=== PATIENT | male | born 1990 | race Caucasian/White ===

== ENCOUNTER 2021-01-19 07:36 | Outpatient (CLI) | payer BC, MEDICARE | END 2021-01-19 07:37 | disposition home or self-care (01) | LOC: BICULT 07:36 | PROVIDERS: ATTEND Internal Medicine Gastroenterology | DX: K50.90 Crohn's disease, unspecified, without complications (principal); R10.13 Epigastric pain; K82.8 Other specified diseases of gallbladder | CPT/HCPCS: 76705 ==

== ENCOUNTER 2021-05-09 08:13 | Outpatient (CLI) | payer BC, MEDICARE ==
[2021-05-09] MEDS ORDERED: Iopamidol 370 76% 100 ML VIAL ONE (09:33)
== END 2021-05-09 08:14 | disposition home or self-care (01) ==
LOC: CT 08:13
PROVIDERS: ATTEND Internal Medicine Gastroenterology
DX: K50.90 Crohn's disease, unspecified, without complications (principal); R10.13 Epigastric pain; M46.1 Sacroiliitis, not elsewhere classified; M43.28 Fusion of spine, sacral and sacrococcygeal region
CPT/HCPCS: 74178; Q9967

== ENCOUNTER 2022-07-10 12:27 | Outpatient (CLI) | payer BC, MEDICARE ==
[2022-07-10 13:25] LABS: #Basophils 0.1 10x3/uL (0.0-0.2); #Eosinphils 0.1 10x3/uL (0.0-0.5); #Monocytes 0.5 10x3/uL (0.0-1.1); #Neutrophils 3.5 10x3/uL (1.5-8.4); %Basophils 0.9 % (0.0-2.0); %Lymphocytes 35.8 % (18.0-47.0); %Monocytes 7.6 % (0.0-10.0); %Neutrophils 53.4 % (40.0-75.0); Hemoglobin 16.8 g/dL (13.5-17.5); Mean Corpuscular HGB CONC 34.2 g/dL (32.0-36.0); Mean Corpuscular Hemoglobin 30.4 pg (27.0-33.0); Mean Corpuscular Volume 88.9 fl (81.2-95.1); Mean Platelet Volume 9.3 fl (7.4-10.4); Platelet Count 305 10x3/uL (150-450); RBC Distribution Width 11.5 % (11.5-14.5); Red Blood Cell (RBC) Count 5.52 10x6/uL (4.32-5.72); White Blood Cell (WBC) Count 6.6 10x3/uL (3.5-10.5)
[2022-07-10 13:59] LABS: ALT (SGPT) 44 U/L (8-55); AST (SGOT) 43 U/L (5-34); Albumin 4.6 g/dL (3.5-5.0); Alkaline Phosphatase 83 U/L (40-110); Anion Gap 15 mmol/L (10-20); BUN (Urea Nitrogen) 15 mg/dL (8.9-20.6); Bilirubin, Total 0.4 mg/dL (0.2-1.2); Calc. Creatinine Clearance 0 mL/min (70-130); Calcium 9.8 mg/dL (7.8-10.44); Carbon Dioxide 26 mmol/L (22-29); Chloride 102 mmol/L (98-107); Estimated GFR 118; Globulin 2.9 g/dL (2.4-3.5); Glucose 88 mg/dL (70-105); Potassium 4.3 mmol/L (3.5-5.1); Protein, Total 7.5 g/dL (6.0-8.3); Sodium 139 mmol/L (136-145)
== END 2022-07-10 12:28 | disposition home or self-care (01) ==
LOC: LABBT 12:27
PROVIDERS: ATTEND Specialist
DX: Z01.812 Encounter for preprocedural laboratory examination (principal); K50.90 Crohn's disease, unspecified, without complications; R10.13 Epigastric pain
CPT/HCPCS: 80053; 85025

== ENCOUNTER 2022-07-13 06:07 | Day surgery (SDC) | payer BC, MEDICARE ==
[2022-07-12 11:06] VITALS: BMI 29.6
[2022-07-13] MEDS ORDERED: Bupivacaine/Epinephrine 0.25% 30 ML VIAL ONE (06:43)
[2022-07-13] MEDS ORDERED: CEFAZOLIN 2 GM VIAL ONE (06:51)
[2022-07-13] MEDS ORDERED: Ketorolac Tromethamine 30 MG/ML VIAL ONE (06:51)
[2022-07-13] MEDS ORDERED: Acetaminophen 500 MG TAB ONE (06:51)
[2022-07-13] MEDS ORDERED: Sodium Chloride 0.9% 100 ML ONE (06:51)
[2022-07-13] MEDS ORDERED: Midazolam HCl 2 mg/2 ml Vial ONE (07:27)
[2022-07-13] MEDS ORDERED: Fentanyl 250 MCG/5 ML VIAL ONE (07:40)
[2022-07-13] MEDS ORDERED: Glycopyrrolate 0.2 MG/ML 5 ML SYRINGE ONE (07:45)
[2022-07-13] MEDS ORDERED: Ondansetron PF 4 MG/2 ML Vial ONE ×2 (07:45→09:12)
[2022-07-13] MEDS ORDERED: PHENYLEPHRINE-NS 100 MCG/ML 10 ML SYRINGE ONE (07:45)
[2022-07-13] MEDS ORDERED: Lidocaine 1% PF 5 ML VIAL ONE (07:45)
[2022-07-13] MEDS ORDERED: NEOSTIGMINE 3 MG/3 ML SYR 3 MG/3 ML SYRINGE ONE (07:45)
[2022-07-13] MEDS ORDERED: Dexamethasone 20 MG/5 ML VIAL ONE (07:45)
[2022-07-13] MEDS ORDERED: Rocuronium Bromide 10 MG/ML (10ML VIAL) ONE (07:45)
[2022-07-13] MEDS ORDERED: PROPOFOL 200 MG/20 ML VIAL ONE (07:45)
[2022-07-13] MEDS ORDERED: Fentanyl 100 MCG/2 ML VIAL ONE ×2 (08:46→09:05)
[2022-07-13] MEDS ORDERED: Promethazine HCl 25 MG/ML VIAL ONE (10:03)
[2022-07-13] MEDS ORDERED: HYDROcodone/Acetaminophen 5/325 mg Tablet ONE (10:03)
== END 2022-07-13 11:00 | disposition home or self-care (01) ==
LOC: SDC 06:07
PROVIDERS: ATTEND Specialist
PROC: 0FT44ZZ Resection of Gallbladder, Percutaneous Endoscopic Approach (ICD-10-PCS; principal; 2022-07-13)
DX: K81.1 Chronic cholecystitis (principal); K50.90 Crohn's disease, unspecified, without complications; G47.00 Insomnia, unspecified; Z79.620 Long term (current) use of immunosuppressive biologic; Z79.899 Other long term (current) drug therapy; Z88.5 Allergy status to narcotic agent; Z88.8 Allergy status to other drugs, medicaments and biological substances; Z90.49 Acquired absence of other specified parts of digestive tract
CPT/HCPCS: 88304; C1889; J1885; J2250; J2405; J2550; J3010; J3490

== ENCOUNTER 2023-05-15 15:21 | Outpatient (CLI) | payer BC, MEDICARE | END 2023-05-15 15:22 | disposition home or self-care (01) | LOC: BICRAD 15:21 | PROVIDERS: ATTEND Student in an Organized Health Care Education/Training Program | DX: M25.531 Pain in right wrist (principal) ==

== ENCOUNTER 2023-09-08 16:51 | Emergency (ER) | payer BC, MEDICARE ==
[~2023-09-08 16:51] MED LIST: Iopamidol-370 76% 500 ML MDV (1 ML CHARGE) ONE
[2023-09-08 17:26] LABS: #Eosinphils 0.1 thou/uL (0.0-0.7); #Monocytes 1.3 thou/uL (0.11-0.59); #Neutrophils 3.6 thou/uL (1.40-6.50); %Basophils 0.5 % (0.0-1.0); %Eosinophils 1.5 % (0.0-10.0); %Lymphocytes 36.7 % (21.0-51.0); %Monocytes 16.5 % (0.0-10.0); %Neutrophils 44.6 % (42.0-75.0); Hematocrit 51.3 % (42.0-52.0); Hemoglobin 17.4 g/dL (14.0-18.0); Mean Corpuscular HGB CONC 33.9 g/dL (32.0-36.0); Mean Corpuscular Hemoglobin 30.9 pg (27.0-31.0); Mean Corpuscular Volume 91.1 fl (78.0-98.0); Mean Platelet Volume 9.4 fL (7.4-10.4); Platelet Count 345 10x3/uL (130-400); RBC Distribution Width 11.6 % (11.5-14.5); Red Blood Cell (RBC) Count 5.63 mill/uL (4.70-6.10); White Blood Cell (WBC) Count 8.1 10x3/uL (4.8-10.8)
[2023-09-08] MEDS ORDERED: Ondansetron PF 4 MG/2 ML Vial ONE (17:30)
[2023-09-08 18:34] LABS: SARS-CoV-2 NAA Rapid Test Not Detected (NotDetected)
[2023-09-08 18:44] LABS: ALT (SGPT) 41 U/L (8-55); AST (SGOT) 26 U/L (5-34); Albumin 4.8 g/dL (3.5-5.0); Alkaline Phosphatase 67 U/L (40-110); Anion Gap 16 mmol/L (10-20); BUN (Urea Nitrogen) 13 mg/dL (8.9-20.6); Bilirubin, Total 0.3 mg/dL (0.2-1.2); Calc. Creatinine Clearance 0 mL/min (70-130); Calcium 9.6 mg/dL (7.8-10.44); Carbon Dioxide 17 mmol/L (22-29); Chloride 110 mmol/L (98-107); Estimated GFR 87; Globulin 3.4 g/dL (2.4-3.5); Glucose 97 mg/dL (70-105); Magnesium 1.9 mg/dL (1.6-2.6); Potassium 3.3 mmol/L (3.5-5.1); Protein, Total 8.2 g/dL (6.0-8.3); Sodium 140 mmol/L (136-145)
[2023-09-08] MEDS ORDERED: Dicyclomine 20 MG/2 ML VIAL ONE (18:55)
[2023-09-08] MEDS ORDERED: Morphine 4 MG/ML VIAL ONE (19:12)
[2023-09-08 20:07] LABS: Bacteria/HPF None Seen HPF (None Seen); Bilirubin Negative (Negative); Blood, Urine Negative (Negative); CAUTI Indications for Culture Pelvic or flank pain; Calcium Oxalate Crystals 2+ HPF (None Seen); Clarity Clear (Clear); Glucose, Urine (Dipstick) Normal (Negative); Ketone, Urine Negative (Negative); Leukocyte Negative Leu/uL (Negative); Nitrite Negative (Negative); Protein, Urine (Dipstick) 50 mg/dL (Neg-Trace); RBC/HPF 0-3 HPF (0-3); Squamous Epithelial None Seen HPF (0-3); Urobilinogen Normal mg/dL (Less than 2); WBC/HPF 0-3 HPF (0-3)
[2023-09-08 20:10] LABS: Specific Gravity, Urine Greater than 1.060 (1.002-1.036); Urine Culture Reflex No No
[2023-09-09 21:23] LABS: Campy jejuni + coli by PCR Negative (Negative); STEC Shiga Toxin 1+2 Negative (Negative); Salmonella spp. by PCR Negative (Negative); Shigella spp + EIEC by PCR Negative (Negative)
== END 2023-09-08 22:55 | disposition home or self-care (01) ==
LOC: ERS 16:51
DX: R11.2 Nausea with vomiting, unspecified (principal); R19.7 Diarrhea, unspecified; K50.90 Crohn's disease, unspecified, without complications; Z55.6 Problems related to health literacy; Z79.01 Long term (current) use of anticoagulants
CPT/HCPCS: 36415; 74177; 80053; 81001; 83735; 85025; 87324; 87449; 87505; 93005; 96361; 96374; 96375; J2270; J2405; Q9967

== ENCOUNTER 2024-07-01 10:19 | Outpatient (CLI) | payer BC, MEDICARE | END 2024-07-01 10:20 | disposition home or self-care (01) | LOC: MRI 10:19 | PROVIDERS: ATTEND Internal Medicine Gastroenterology | DX: K50.90 Crohn's disease, unspecified, without complications (principal) | CPT/HCPCS: 74183 ==